=== PATIENT | female | born 1995 | race Caucasian/White ===

== ENCOUNTER 2017-02-23 12:16 | Emergency (ER) | payer MEDICAID ==
[~2017-02-23] VITALS: Ht 157.5 cm; Wt 68.0 kg
--- NOTE | 2017-02-23 12:57 | NUR ---
DR CONNORS AT THE BEDSIDE FOR EVAL AND EXAM.
--- NOTE | 2017-02-23 13:20 | NUR ---
Patient discharged to home in stable conditon. Written and verbal after care instructions given. Patient verbalizes understanding of instructions.
== END 2017-02-23 13:20 | disposition home or self-care (01) ==
LOC: ER 12:23
DX: J40 Bronchitis, not specified as acute or chronic (principal); J04.0 Acute laryngitis
CPT/HCPCS: A4663

== ENCOUNTER 2018-07-02 20:52 | Emergency (ER) | payer BC, OTHER ==
[~2018-07-02] VITALS: Ht 160 cm; Wt 72.6 kg
[2018-07-02] MEDS ORDERED: DIAZEPAM 2 MG TABLET ONE ×2 (21:28→21:32)
[2018-07-02] MEDS ORDERED: DIAZEPAM 2 MG TABLET PO ONE (21:30)
[2018-07-02] MEDS ORDERED: KETOROLAC TROMETHAMINE 60 MG INJ IM ONE ×2 (21:30→21:39)
--- NOTE | 2018-07-02 21:51 | NUR ---
Pt. ambulated into ED w/ c/o general neck pain since exercising at gym @ approx. 1800, denies ARGUETA/F/C/N/V
--- NOTE | 2018-07-02 22:14 | NUR ---
Patient discharged to home in stable conditon. Written and verbal after care instructions given. Patient verbalizes understanding of instructions. Pt. d/c w/ prescription per MD order, d/c papers signed, all belongings w/ pt., ID band removed, ambulated off unit w/ steady gait, left w/ father, no acute distress,
== END 2018-07-02 22:17 | disposition home or self-care (01) ==
LOC: ER 20:54
DX: M62.838 Other muscle spasm (principal); Z88.1 Allergy status to other antibiotic agents
CPT/HCPCS: 96372; 99283; J1885; A4663

== ENCOUNTER 2018-12-04 13:29 | Emergency (ER) | payer BC, OTHER ==
[~2018-12-04] VITALS: Ht 157.5 cm; Wt 72.6 kg
--- NOTE | 2018-12-04 14:16 | NUR ---
Patient discharged to home in stable conditon. Written and verbal after care instructions given. Patient verbalizes understanding of instructions.
== END 2018-12-04 14:17 | disposition home or self-care (01) ==
LOC: ER 13:33
DX: J02.8 Acute pharyngitis due to other specified organisms (principal); B97.89 Other viral agents as the cause of diseases classified elsewhere; Z88.1 Allergy status to other antibiotic agents
CPT/HCPCS: 36415; 86403; 87070; A4663